=== PATIENT | male | born 1950 | race Caucasian/White ===

== ENCOUNTER 2017-02-28 10:30 | Outpatient (CLI) | payer MEDICARE ==
--- NOTE | 2017-02-28 14:58 | MRI ---
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 FINDINGS: Multiplanar, multisequence pre- and postcontrast-enhanced MRI images of the brain are obtained. MRI images demonstrate the brain to be unremarkable. No evidence of intracranal masses, hemorrhages, strokes, or contusions seen. Ventricles are of normal size. No abnormal areas of diffusion restric tion seen. No abnormal areas of enhancing intracranial mass lesion is seen. Left maxillary sinus mucous retenti on cyst is present. IMPRESSION: Unremarkable pre- and postcontrast-enhanced MRI images of the brain. POS: JUN
== END 2017-02-28 10:31 | disposition home or self-care (01) ==
LOC: SCSMRI 10:30
PROVIDERS: ATTEND Psychiatry & Neurology Neurology
DX: H53.2 Diplopia (principal)
CPT/HCPCS: 70553

== ENCOUNTER 2019-12-20 07:28 | Outpatient (CLI) | payer MEDICARE, OTHER ==
[2019-12-20 14:02] LABS: #Lymphocytes 1.1 thou/uL (1.20-3.40); #Monocytes 0.6 thou/uL (0.11-0.59); #Neutrophils 3.2 thou/uL (1.40-6.50); %Basophils 0.3 % (0.0-1.0); %Eosinophils 0.4 % (0.0-10.0); %Lymphocytes 22.8 % (21.0-51.0); %Monocytes 11.8 % (0.0-10.0); %Neutrophils 64.5 % (42.0-75.0); Hemoglobin 16.4 g/dL (14.0-18.0); Mean Corpuscular HGB CONC 34.7 g/dL (32.0-36.0); Mean Corpuscular Hemoglobin 34.1 pg (27.0-31.0); Mean Corpuscular Volume 98.3 fL (78.0-98.0); Mean Platelet Volume 6.9 fL (7.4-10.4); Platelet Count 214 thou/uL (130-400); RBC Distribution Width 11.7 % (11.5-14.5); Red Blood Cell (RBC) Count 4.81 mill/uL (4.70-6.10)
[2019-12-20 14:39] LABS: Anion Gap 16 mmol/L (10-20); BUN (Urea Nitrogen) 19 mg/dL (8.4-25.7); Calc. Creatinine Clearance 0 mL/min (70-130); Calcium 9.8 mg/dL (7.8-10.44); Carbon Dioxide 25 mmol/L (23-31); Chloride 102 mmol/L (98-107); Estimated GFR-MDRD 61; Glucose 99 mg/dL (80-115); Potassium 4.4 mmol/L (3.5-5.1); Sodium 139 mmol/L (136-145)
[2019-12-21 12:00] LABS: SARS-CoV-2 MS2 Positive; SARS-CoV-2 N Gene Negative; SARS-CoV-2 S Gene Negative; SARS-CoV-2 by NAA Not Detected (NotDetected); SARS-CoV-2 orf1ab Negative
== END 2019-12-20 07:29 | disposition home or self-care (01) ==
LOC: LABBT 07:28
PROVIDERS: ATTEND Specialist
DX: Z01.812 Encounter for preprocedural laboratory examination (principal); Z20.828 Contact with and (suspected) exposure to other viral communicable diseases; K40.90 Unilateral inguinal hernia, without obstruction or gangrene, not specified as recurrent
CPT/HCPCS: 80048; 85025; U0003; 87635

== ENCOUNTER 2019-12-24 10:51 | Day surgery (SDC) | payer MEDICARE, OTHER ==
[2019-12-20 14:07] VITALS: BMI 26.9
[~2019-12-24 10:51] MED LIST: Dexamethasone 20 MG/5 ML VIAL ONE; EPHEDRINE 25 MG/5 ML SYRINGE ONE; Glycopyrrolate 0.2 MG/ML 5 ML SYRINGE ONE; Lidocaine 1% PF 5 ML VIAL ONE; Metoclopramide HCl 10 MG/2 ML VIAL ONE; Ondansetron PF 4 MG/2 ML Vial ONE; PHENYLEPHRINE-NS 100 MCG/ML 10 ML SYRINGE ONE; PROPOFOL 200 MG/20 ML VIAL ONE; Rocuronium Bromide 10 MG/ML (10ML VIAL) ONE
[2019-12-24] MEDS ORDERED: Ketorolac Tromethamine 30 MG/ML VIAL ONE (11:41)
[2019-12-24] MEDS ORDERED: Acetaminophen 500 MG TAB ONE (11:41)
[2019-12-24] MEDS ORDERED: Lidocaine 1% w/Epinephrine 1:100K 20 ML VIAL ONE (13:55)
[2019-12-24] MEDS ORDERED: Bupivacaine 0.25% HCL 30 ML VIAL ONE (13:55)
[2019-12-24] MEDS ORDERED: Famotidine/PF 20 mg/2ml Vial ONE (14:01)
[2019-12-24] MEDS ORDERED: Fentanyl 100 MCG/2 ML VIAL ONE ×2 (14:01→16:48)
[2019-12-24] MEDS ORDERED: SUGAMMADEX SODIUM 200 MG/2 ML VIAL ONE (14:01)
--- NOTE | 2019-12-25 12:51 | OP ---
DATE OF PROCEDURE: 12/24/2019 PREOPERATIVE DIAGNOSES: Left inguinal hernia, history of robotic prostatectomy. POSTOPERATIVE DIAGNOSES: Left inguinal hernia, history of robotic prostatectomy. OPERATION PERFORMED: Robotic left inguinal hernia repair with mesh using a large 3DMax mesh patch. ANESTHESIA: General endotracheal. INDICATIONS: Patient is a 69-year-old white male. He has a history of a robotic prostatectomy about seven years ago. He has developed an enlarging left inguinal hernia and is taken to the operating room at this time for repair. I have recommended an attempted robotic repair, although patient understands that this could be converted to an open surgery, if it is found to be incompatible with robotic preperitoneal repair. DESCRIPTION OF OPERATION: Informed consent was obtained. Patient was taken to the operating room, where general endotracheal anesthesia was obtained with patient in supine position. Ledesma catheter was placed. Even though he had a history of a urethral stricture, the Ledesma catheter was placed uneventfully. Abdomen was prepped with ChloraPrep and draped in a sterile fashion. Local anesthetic was infiltrated using a mixture of 1% lidocaine with epinephrine 0.25% Marcaine. A transverse supraumbilical incision was created. A Veress needle was passed through this incision into the peritoneal cavity. Pneumoperitoneum was established using carbon dioxide up to pressure of 15 mmHg. An 11 mm trocar port site was established at the same incision. Laparoscopic camera was passed through this port. Under direct vision, two additional 8 mm robotic ports were placed at the supraumbilical level on either side of the midline. The robot was docked to these three ports as well as the robotic camera and the operation was continued from the robotic console. Examination of the pelvis revealed no evidence of a right inguinal hernia. There was some scarring in the central pelvis around the area of the bladder. There was a large easily visible left inguinal hernia. This seemed to deviate medially from its origin. A transverse peritoneal incision was created several centimeters superior to the hernia defect. Preperitoneal dissection was carried inferiorly. Laterally, the iliopubic tract was dissected. Medially, there was more scarring than I had hoped for. I carried the dissection to the level of the median umbilical ligament. The dissection in the retroperitoneal plane down towards the pubic tubercle was not easily dissected. I therefore returned my attention to the hernia. I approached the hernia on the lateral aspect and carefully dissected the hernia sac from within the hernia defect. This was clearly a substantial indirect hernia. As I dissected the hernia, I was eventually able to identify the end of the hernia sac and reduced the entire hernia sac away from the cord structures. Once the hernia was dissected, I turned my attention towards dissection in the area of the scarring medially. I carefully dissected through the tissue down towards the pubic tubercle, which was clearly identified. I dissected further scarring off the posterior peritoneal flap, including off the cord structures. The vas deferens was fairly densely scarred to the peritoneal flap. After the scarring was mobilized, I obtained a large 3DMax mesh patch, placed it in the preperitoneal space. It was secured to the pubic tubercle with a single interrupted suture of 2-0 Vicryl. I then placed two more Vicryl sutures to the anterior abdominal wall, one medial to the epigastric vessels and one lateral. The peritoneum was then closed with a running suture of 3-0 Stratafix. beginning laterally and extending medially. The large hernia sac was utilized to help with the closure medially with the scarring made it difficult to approximate the peritoneal edges. The mesh was entirely covered. There had been no complication or significant bleeding during the procedure. All ports and instruments were removed under direct vision. The fascial defect at the 11 mm port site was closed with 0 Vicryl suture using a GraNee needle. Each of the 3 incisions were closed with 4-0 Monocryl suture and Dermabond was placed externally. There were no complications. Patient tolerated the procedure well and was taken to recovery room in stable condition. Job ID: [id number]
--- NOTE | 2019-12-25 16:17 | EKG ---
Test Reason : PREOP Blood Pressure : / mmHG Vent. Rate : 066 BPM Atrial Rate : 066 BPM P-R Int : 172 ms QRS Dur : 136 ms QT Int : 410 ms P-R-T Axes : 024 102 043 degrees QTc Int : 429 ms Normal sinus rhythm Right bundle branch block Abnormal ECG No previous ECGs available Confirmed by JOSE ALBERTO WAN ([id number]) on 12/25/2019 4:16:43 PM Referred By: PHI Confirmed By:JOSE ALBERTO WAN
== END 2019-12-24 18:45 | disposition home or self-care (01) ==
LOC: SDC 10:51
PROVIDERS: ATTEND Specialist
PROC: 0YU64JZ Supplement Left Inguinal Region with Synthetic Substitute, Percutaneous Endoscopic Approach (ICD-10-PCS; principal; 2019-12-24)
DX: K40.90 Unilateral inguinal hernia, without obstruction or gangrene, not specified as recurrent (principal); I10 Essential (primary) hypertension; N52.9 Male erectile dysfunction, unspecified; Z79.899 Other long term (current) drug therapy
CPT/HCPCS: 49650; 93005; C1781; 93010; J0690; J1100; J1885; J2405; J2704; J2765; J3010; S0020; S0028

== ENCOUNTER 2020-12-28 03:34 | Inpatient (IN) | payer MEDICARE, OTHER ==
[2020-12-28 04:12] LABS: #Monocytes 0.6 thou/uL (0.11-0.59); #Neutrophils 4.5 thou/uL (1.40-6.50); %Basophils 0.2 % (0.0-1.0); %Eosinophils 0.5 % (0.0-10.0); %Lymphocytes 16.1 % (21.0-51.0); %Monocytes 9.2 % (0.0-10.0); Hemoglobin 16.6 g/dL (14.0-18.0); Mean Corpuscular HGB CONC 35.9 g/dL (32.0-36.0); Mean Corpuscular Hemoglobin 34.6 pg (27.0-31.0); Mean Corpuscular Volume 96.5 fL (78.0-98.0); Mean Platelet Volume 6.4 fL (7.4-10.4); Platelet Count 216 thou/uL (130-400); RBC Distribution Width 11.5 % (11.5-14.5); White Blood Cell (WBC) Count 6.1 thou/uL (4.8-10.8)
[2020-12-28] MEDS ORDERED: Meclizine HCl 25 MG TAB ONE (04:17)
[2020-12-28 04:35] LABS: ALT (SGPT) 32 U/L (8-55); AST (SGOT) 27 U/L (5-34); Albumin 4.4 g/dL (3.4-4.8); Alkaline Phosphatase 77 U/L (40-110); Anion Gap 13 mmol/L (10-20); BUN (Urea Nitrogen) 17 mg/dL (8.4-25.7); Bilirubin, Total 0.6 mg/dL (0.2-1.2); Calc. Creatinine Clearance 0 mL/min (70-130); Calcium 9.6 mg/dL (7.8-10.44); Carbon Dioxide 26 mmol/L (23-31); Chloride 103 mmol/L (98-107); Globulin 3.1 g/dL (2.4-3.5); Glucose 108 mg/dL (80-115); Potassium 4.2 mmol/L (3.5-5.1); Protein, Total 7.5 g/dL (5.8-8.1); Sodium 138 mmol/L (136-145)
[2020-12-28] MEDS ORDERED: Aspirin 325 MG TAB ONE (06:01)
[2020-12-28] MEDS ORDERED: Ondansetron ODT 4 MG TAB PO PRN (07:32)
[2020-12-28] MEDS ORDERED: Acetaminophen 325 MG TAB PO PRN (07:32)
[2020-12-28 07:37] LABS: Troponin I 0.014 ng/mL (< 0.028)
[2020-12-28 07:48] LABS: SARS-CoV-2 NAA Rapid Test Not Detected (NotDetected)
[2020-12-28 10:38] LABS: Troponin I Less than 0.010 ng/mL (< 0.028)
[2020-12-28 13:33] VITALS: BMI 28.2
[2020-12-28] MEDS: Meclizine HCl 25 MG TAB PO SCH ×2 (16:15→21:46)
[2020-12-28 18:20] LABS: Bacteria/HPF None Seen HPF (None Seen); Bilirubin Negative (Negative); Blood, Urine Negative (Negative); Clarity Clear (Clear); Glucose, Urine (Dipstick) Normal (Negative); Ketone, Urine Negative (Negative); Leukocyte Negative Leu/uL (Negative); Nitrite Negative (Negative); Protein, Urine (Dipstick) Negative (Neg-Trace); RBC/HPF 0-3 HPF (0-3); Specific Gravity, Urine 1.011 (1.002-1.036); Squamous Epithelial None Seen HPF (0-3); Urobilinogen Normal mg/dL (Less than 2); WBC/HPF 0-3 HPF (0-3); pH, Urine 6.5 (5.0-9.0)
[2020-12-28] MEDS: Capsaicin 0.025% Cream 60 gm Tube TOP SCH (20:15)
[2020-12-28] MEDS ORDERED: Atorvastatin Calcium 40 MG TAB PO SCH (21:00)
[2020-12-29] MEDS: Meclizine HCl 25 MG TAB PO SCH (06:04)
[2020-12-29 06:25] LABS: #Lymphocytes 1.6 thou/uL (1.20-3.40); #Monocytes 0.6 thou/uL (0.11-0.59); #Neutrophils 3.3 thou/uL (1.40-6.50); %Basophils 0.4 % (0.0-1.0); %Eosinophils 0.8 % (0.0-10.0); %Lymphocytes 28.3 % (21.0-51.0); %Monocytes 11.2 % (0.0-10.0); %Neutrophils 59.3 % (42.0-75.0); Hemoglobin 15.9 g/dL (14.0-18.0); Mean Corpuscular HGB CONC 34.7 g/dL (32.0-36.0); Mean Corpuscular Hemoglobin 33.9 pg (27.0-31.0); Mean Corpuscular Volume 97.7 fL (78.0-98.0); Mean Platelet Volume 6.4 fL (7.4-10.4); Platelet Count 220 thou/uL (130-400); RBC Distribution Width 11.7 % (11.5-14.5); Red Blood Cell (RBC) Count 4.68 mill/uL (4.70-6.10); White Blood Cell (WBC) Count 5.6 thou/uL (4.8-10.8)
[2020-12-29 06:50] LABS: Anion Gap 13 mmol/L (10-20); BUN (Urea Nitrogen) 18 mg/dL (8.4-25.7); Calc. Creatinine Clearance 82 mL/min (70-130); Calcium 9.1 mg/dL (7.8-10.44); Carbon Dioxide 23 mmol/L (23-31); Cardiac Risk 5.5 (Less than 4.5); Chloride 107 mmol/L (98-107); Cholesterol 191 mg/dl (< 200 Desired); Glucose 97 mg/dL (80-115); HDL Cholesterol 35 mg/dL (>60 Neg Risk); LDL Cholesterol, Calculated 126 mg/dL; Potassium 4.3 mmol/L (3.5-5.1); Sodium 139 mmol/L (136-145); Triglycerides 150 mg/dL (Less than 150)
[2020-12-29] MEDS ORDERED: Aspirin 81 mg Enteric Coated Tablet PO SCH (09:00)
[2020-12-29] MEDS: Capsaicin 0.025% Cream 60 gm Tube TOP SCH (09:36)
[2020-12-29 12:13] VITALS: TEMP 97.8
[2020-12-29 16:36] VITALS: BP 132/75
== END 2020-12-29 16:03 | disposition home or self-care (01) | DRG 66 ==
LOC: ERS 03:34 → ERHOLD 05:59 → OBSVTOIN 11:13 → 3SE 13:14
PROVIDERS: ADMIT Internal Medicine; ATTEND Nurse Practitioner Family
DX: I63.9 Cerebral infarction, unspecified (principal); I10 Essential (primary) hypertension; E78.5 Hyperlipidemia, unspecified; I45.10 Unspecified right bundle-branch block; Z20.822 Contact with and (suspected) exposure to COVID-19; Z85.46 Personal history of malignant neoplasm of prostate; Z79.899 Other long term (current) drug therapy
CPT/HCPCS: 36415; 70450; 70551; 71045; 80048; 80053; 80061; 81001; 82607; 82746; 84443; 84484; 85025; 93005; 93306; 93880; G0378; U0002